=== PATIENT | female | born 1945 | race Caucasian/White ===

== ENCOUNTER 2017-04-26 10:04 | Observation (INO) ==
--- NOTE | 2017-04-26 10:44 | Emergency Department Note ---
Disposition Clinical Impression: Diverticulitis, Rectal bleeding Disposition: Admitted As Inpatient Condition: Fair Referrals: Brian Dhillon DO [Primary Care Provider] - Forms: ED Satisfaction Letter, Work/School Release Time of Disposition: 13:04 Abdominal Pain HPI - General Chief Complaint: ED Abdominal Pain Stated Complaint: ABD Pain/GI bleed Time Seen by Provider: 04/26/17 10:06 Source: patient, family Mode of arrival: ambulatory Limitations: no limitations Nursing Notes Reviewed: Yes Vital Signs Reviewed: Yes - History of Present Illness HPI Narrative: 72-year-old female who comes in with a history of recurrent diarrhea with blood in it for the last month whose had increasing pain and now has not had a bowel movement for 4 days. Patient states that she has had a colonoscopy in the past about 3 years ago and had 3 polyps removed and she stated that there was cancer and one of them. The patient states she is about due for colonoscopy. Pt Subjective Complaint: abdominal pain Onset (ago): week(s) Consistency: intermittent, Worsening Location: diffuse Pain Scale: 6 Quality: cramping Radiation: none Migration to: no migration Improves with: nothing Associated symptoms: Reports: diarrhea, constipation Treatments prior to arrival: none - Related Data Home Medications Medication Instructions Recorded Confirmed Aspirin Enteric Coated [Aspirin EC] 81 mg PO DAILY 06/25/15 04/26/17 Levothyroxine [Synthroid] 88 mcg PO DAILY 06/25/15 04/26/17 Lisinopril [Zestril] 40 mg PO DAILY 06/25/15 04/26/17 Lovastatin 40 mg PO DAILY 06/25/15 04/26/17 Famotidine [Pepcid] 40 mg PO DAILY 04/26/17 04/26/17 Ondansetron ODT [Zofran ODT] 4 mg PO Q8H PRN 04/26/17 04/26/17 Sertraline [Zoloft] 50 mg PO DAILY 04/26/17 04/26/17 Allergies Allergy/AdvReac Type Severity Reaction Status Date / Time isosorbide [From Imdur] AdvReac Dizziness Verified 04/26/17 10:11 All systems ED: reviewed and negative except as stated. Constitutional: Denies: fever, chills, weakness, weight change Eyes: Denies: eye pain, eye discharge, vision change ENT ED: Denies: ear pain, throat pain, dental pain, hearing loss, epistaxis, congestion, dysphagia Cardiovascular: Denies: chest pain, palpitations, dyspnea on exertion, edema, syncope Respiratory: Denies: cough, dyspnea, wheezes, hemoptysis, stridor Gastrointestinal: Reports: abdominal pain, nausea, diarrhea, constipation. Denies: vomiting, hematemesis, melena, hematochezia Genitourinary: Denies: dysuria, frequency, hematuria, discharge Musculoskeletal: Denies: back pain, neck pain, arthralgia, myalgia Integumentary: Denies: rash, abrasion, lesions Neurological: Denies: headache, weakness, numbness, paresthesias, confusion, abnormal gait, vertigo Psychiatric: Denies: anxiety, depression, suicidal thoughts, homicidal thoughts , auditory hallucinations, visual hallucinations Endocrine: Denies: fatigue Hematological/Lymphatic: Denies: easy bleeding, easy bruising Allergic/Immunologic: Denies: facial swelling, urticaria Abdominal Pain PMH - Past Medical History Medical history: Reports: hyperlipidemia, hypertension, thyroid disease, other Female Surgical History: Reports: other Psychiatric history: Reports: depression - Social History Smoking status: Never smoker Alcohol use: Reports: none Drug use: Reports: none Physical Exam - General Limitations: no limitations General appearance: alert, in no apparent distress Course - Reevaluation(s) Reevaluation #1: 72-year-old comes in with abdominal pain and rectal bleeding CT shows diverticular disease, patient will be admitted for further evaluation and treatment. Time: 13:04 - Consultations Consultation #1: Discussed with Dr. Okeefe, admit Time: 13:04 Vital Signs Temperature 97.5 F L 04/26/17 10:06 Pulse Rate 72 04/26/17 10:06 Respiratory Rate 18 04/26/17 10:06 Blood Pressure 155/85 04/26/17 10:06 O2 Sat by Pulse Oximetry 94 04/26/17 10:06 Temperature 97.5 F L 04/26/17 10:06 Pulse Rate 74 04/26/17 10:26 Respiratory Rate 04/26/17 10:26 Blood Pressure 148/84 04/26/17 10:26 O2 Sat by Pulse Oximetry 96 04/26/17 10:26 Oxygen Delivery Oxygen Delivery Room Air Abdominal Pain - Lab Data Lab results reviewed: Yes I reviewed the patient's lab results. Result diagrams: 04/26/17 10:40 04/26/17 10:40 Lab Results 04/26/17 04/26/17 04/26/17 Range/Units 10:40 10:40 10:40 WBC 8.2 (4.3-11.1) K/mcL RBC 5.27 H (3.82-4.97) M/mcL Hgb 15.1 (11.5-15.4) g/dL Hct 44.9 (35.3-44.9) % MCV 85.2 (83.0-100.0) fL MCH 28.7 (28.0-33.3) pg MCHC 33.6 (31.6-35.5) g/dL RDW 12.3 (11.5-14.5) % Plt Count 257 (140-400) K/mcL MPV 8.5 L (9.4-12.4) fL Immature Gran % 0.5 (0-4) % Seg Neutrophils % 64.8 % Lymphocytes % 23.8 % Monocytes % 9.9 % Eosinophils % 0.6 % Basophils % 0.4 % Neutrophils # 5.3 (1.6-8.9) K/mcL Lymphocytes # 2.0 (0.6-4.6) K/mcL Monocytes # 0.8 (0.0-1.3) K/mcL Eosinophils # 0.1 (0.0-0.6) K/mcL Basophils # 0.0 (0.0-0.2) K/mcL PT 11.3 (9.4-12.1) Seconds INR 1.1 APTT 27.9 (26.0-36.0) Seconds Sodium 134 L (136-145) mEq/L Potassium 4.3 (3.5-5.1) mEq/L Chloride 100 (98-107) mEq/L Carbon Dioxide 24 (23-29) mEq/L BUN 20 (8-23) mg/dL Creatinine 1.01 (0.60-1.20) mg/dL Est GFR ( Amer) > 60 (> 60) Est GFR (Non-Af Amer) 54 L (> 60) BUN/Creatinine Ratio 20 (6-26) Glucose 99 (70-105) mg/dL Calculated Osmolality 281 (280-300) Lactic Acid (0.5-2.2) mmol/L Calcium 10.0 (8.6-10.3) mg/dL Total Bilirubin 0.8 (0.3-1.0) mg/dL Direct Bilirubin 0.1 (0.0-0.2) mg/dL Indirect Bilirubin 0.7 (0.0-1.2) mg/dL AST 15 (13-39) Units/L ALT 18 (7-52) Units/L Alkaline Phosphatase 75 (34-104) Units/L Troponin I < 0.03 (< 0.04) ng/mL Serum Total Protein 7.4 (6.4-8.9) g/dL Albumin 4.7 (3.5-5.7) g/dL Globulin 2.7 (2.4-3.5) g/dL Albumin/Globulin Ratio 1.7 (1.1-2.2) Amylase 36 (29-103) Units/L Lipase 15 (11-82) Units/L Urine Color (Yellow) Urine Clarity (Clear) Urine pH (5.0-8.0) pH Units Ur Specific [place] (1.010-1.025) Urine Protein (Neg-Trace) mg/dL Urine Glucose (UA) (Normal) mg/dL Urine Ketones (Negative) mg/dL Urine Blood (Negative) Urine Nitrite (Negative) Urine Bilirubin (Negative) Urine Urobilinogen (Normal) mg/dL Ur Leukocyte Esterase (Negative) Urine Microscopic RBC (0-3) per hpf Urine Microscopic WBC (0-3) per hpf Ur Squamous Epith Cells (None-Few) per lpf Urine Bacteria (None-Few) per hpf Hyaline Casts (None-Few) per lpf Ur Culture Indicated? (NO) Blood Type Antibody Screen 04/26/17 04/26/17 04/26/17 Range/Units 10:40 10:40 11:21 WBC (4.3-11.1) K/mcL RBC (3.82-4.97) M/mcL Hgb (11.5-15.4) g/dL Hct (35.3-44.9) % MCV (83.0-100.0) fL MCH (28.0-33.3) pg MCHC (31.6-35.5) g/dL RDW (11.5-14.5) % Plt Count (140-400) K/mcL MPV (9.4-12.4) fL Immature Gran % (0-4) % Seg Neutrophils % % Lymphocytes % % Monocytes % % Eosinophils % % Basophils % % Neutrophils # (1.6-8.9) K/mcL Lymphocytes # (0.6-4.6) K/mcL Monocytes # (0.0-1.3) K/mcL Eosinophils # (0.0-0.6) K/mcL Basophils # (0.0-0.2) K/mcL PT (9.4-12.1) Seconds INR APTT (26.0-36.0) Seconds Sodium (136-145) mEq/L Potassium (3.5-5.1) mEq/L Chloride (98-107) mEq/L Carbon Dioxide (23-29) mEq/L BUN (8-23) mg/dL Creatinine (0.60-1.20) mg/dL Est GFR ( Amer) (> 60) Est GFR (Non-Af Amer) (> 60) BUN/Creatinine Ratio (6-26) Glucose (70-105) mg/dL Calculated Osmolality (280-300) Lactic Acid 1.2 (0.5-2.2) mmol/L Calcium (8.6-10.3) mg/dL Total Bilirubin (0.3-1.0) mg/dL Direct Bilirubin (0.0-0.2) mg/dL Indirect Bilirubin (0.0-1.2) mg/dL AST (13-39) Units/L ALT (7-52) Units/L Alkaline Phosphatase (34-104) Units/L Troponin I (< 0.04) ng/mL Serum Total Protein (6.4-8.9) g/dL Albumin (3.5-5.7) g/dL Globulin (2.4-3.5) g/dL Albumin/Globulin Ratio (1.1-2.2) Amylase (29-103) Units/L Lipase (11-82) Units/L Urine Color Yellow (Yellow) Urine Clarity Clear (Clear) Urine pH 7.0 (5.0-8.0) pH Units Ur Specific [place] 1.022 (1.010-1.025) Urine Protein Negative (Neg-Trace) mg/dL Urine Glucose (UA) Normal (Normal) mg/dL Urine Ketones Negative (Negative) mg/dL Urine Blood Negative (Negative) Urine Nitrite Negative (Negative) Urine Bilirubin Negative (Negative) Urine Urobilinogen Normal (Normal) mg/dL Ur Leukocyte Esterase Small H (Negative) Urine Microscopic RBC 5-15 H (0-3) per hpf Urine Microscopic WBC 0-3 (0-3) per hpf Ur Squamous Epith Cells Many H (None-Few) per lpf Urine Bacteria None Seen (None-Few) per hpf Hyaline Casts None Seen (None-Few) per lpf Ur Culture Indicated? NO. (NO) Blood Type O POSITIVE Antibody Screen NEGATIVE - Radiology Data Radiology results reviewed: Yes I reviewed the patient's radiology results. Abdomen/Pelvis CT 04/26/17 10:20 IMPRESSION: Early changes of diverticulitis involving the sigmoid colon with no evidence for bowel rupture or abscess. D/ / 04/26/2017 11:07:36 Frankie Hernandez MD / rashid Interpreting Provider: Frankie Hernandez MD
[2017-04-26 11:03] LABS: Basophils % 0.4 %; Eosinophils # 0.1 K/mcL (0.0-0.6); Eosinophils % 0.6 %; Hematocrit 44.9 % (35.3-44.9); Hemoglobin 15.1 g/dL (11.5-15.4); Immature Granulocytes % 0.5 % (0-4); Lymphocytes % 23.8 %; Mean Corpuscular HGB Conc 33.6 g/dL (31.6-35.5); Mean Corpuscular Hemoglobin 28.7 pg (28.0-33.3); Mean Corpuscular Volume 85.2 fL (83.0-100.0); Mean Platelet Volume 8.5 fL (9.4-12.4); Monocytes # 0.8 K/mcL (0.0-1.3); Monocytes % 9.9 %; Neutrophils # 5.3 K/mcL (1.6-8.9); Platelet Count 257 K/mcL (140-400); Red Blood Count 5.27 M/mcL (3.82-4.97); Red Cell Distribution Width 12.3 % (11.5-14.5); Segmented Neutrophils % 64.8 %
[2017-04-26 11:12] LABS: INR 1.1; Prothrombin Time 11.3 Seconds (9.4-12.1)
[2017-04-26 11:14] LABS: Activated Partial Thrombo Time 27.9 Seconds (26.0-36.0)
[2017-04-26 11:25] LABS: Alanine Aminotransferase 18 Units/L (7-52); Albumin 4.7 g/dL (3.5-5.7); Albumin/Globulin Ratio 1.7 (1.1-2.2); Alkaline Phosphatase 75 Units/L (34-104); Amylase 36 Units/L (29-103); Aspartate Amino Transferase 15 Units/L (13-39); BUN/Creatinine Ratio 20 (6-26); Bilirubin,Direct 0.1 mg/dL (0.0-0.2); Bilirubin,Indirect 0.7 mg/dL (0.0-1.2); Bilirubin,Total 0.8 mg/dL (0.3-1.0); Blood Urea Nitrogen 20 mg/dL (8-23); Carbon Dioxide 24 mEq/L (23-29); Chloride 100 mEq/L (98-107); Globulin 2.7 g/dL (2.4-3.5); Glucose 99 mg/dL (70-105); Lipase 15 Units/L (11-82); Osmolality,Calculated 281 (280-300); Potassium 4.3 mEq/L (3.5-5.1); Sodium 134 mEq/L (136-145); Total Protein 7.4 g/dL (6.4-8.9); eGFR For African Americans > 60 (> 60); eGFR For Non-African Americans 54 (> 60)
[2017-04-26 11:29] LABS: Bilirubin,Urine Negative (Negative); Blood,Urine Negative (Negative); Clarity,Urine Clear (Clear); Color,Urine Yellow (Yellow); Glucose,Urine (UA) Normal (Normal); Ketones,Urine Negative (Negative); Leukocyte Esterase,Urine Small (Negative); Nitrite,Urine Negative (Negative); Protein,Urine Negative (Neg-Trace); Specific Gravity,Urine 1.022 (1.010-1.025); Urobilinogen,Urine Normal (Normal)
[2017-04-26 11:34] LABS: Bacteria,Urine None Seen per hpf (None-Few); Hyaline Casts,Urine None Seen per lpf (None-Few); Squamous Epithelial Cell,Urine Many per lpf (None-Few); WBC,Urine 0-3 per hpf (0-3)
[2017-04-26] MEDS ORDERED: Levofloxacin 500 MG/100 ML 500 MG/100 ML BAG IVPB ONE (12:16)
[2017-04-26 12:24] LABS: Troponin I < 0.03 ng/mL (< 0.04)
[2017-04-26] MEDS: MetroNIDAZOLE 500 MG/100 ML 500 MG/100 ML BAG IVPB ONE ×2 (12:29→13:48)
--- NOTE | 2017-04-26 13:18 | Internal Med History&Physical ---
Date of Encounter: 04/26/17 Time of Encounter: 13:15 Assessment and Plan (1) HTN (hypertension) Current visit: Yes Status: Chronic Chronic now well controlled we will adjust home medication Qualifiers: Hypertension type: essential hypertension Qualified Code(s): I10 - Essential (primary) hypertension (2) Hyperlipidemia Current visit: Yes Status: Chronic Recheck lipid profile in a.m. Qualifiers: Hyperlipidemia type: pure hypercholesterolemia Qualified Code(s): E78.00 - Pure hypercholesterolemia, unspecified; E78.0 - Pure hypercholesterolemia (3) Hypothyroid Current visit: Yes Status: Chronic Chronic resume home medication Qualifiers: Hypothyroidism type: unspecified Qualified Code(s): E03.9 - Hypothyroidism , unspecified (4) Depression Current visit: Yes Status: Chronic Chronic resume home medication Qualifiers: Depression Type: unspecified Qualified Code(s): F32.9 - Major depressive disorder, single episode, unspecified (5) Diverticulitis Current visit: Yes Status: Acute Acute diverticulitis involving the sigmoid colon was started on Flagyl and Cipro (6) Rectal bleeding Current visit: Yes Status: Acute Blood in the stool no black stool appeared to be lower GI bleeding patient states she had polyps in the past and was told it was precancerous we will consult GI for further evaluation probably colonoscopy and EGD after diverticulitis is resolved Internal Medicine - H&P: HPI Chief complaint: abd pain Admitted From: Emergency Dept Plans for Post Hospital Care: Home History of present illness: Ms. Fermin is a 72 year old female Patient with history of ovarian cancer, hypertension, high cholesterol, hypothyroidism and depression. Patient has had diarrhea for about a month followed by PCP given omeprazole some antinausea medication she also been seeing some blood in her stool . Has increased abdominal pain the last 4 days with apparently change from from diarrhea to constipation and has not a bowel movement for about 4 days . patient has had had a colonoscopy about 3 years ago show some polyps says b was told one was precancerous. Patient denies any fever or chills CT of the abdomen shows diverticulitis involving the sigmoid colon. Patient will be admitted for treatment of diverticulitis and will consult GI for further evaluation given blood in the stool and history of polyps. Past Med Surg Social Fam HX - Past Medical History Medical history: hyperlipidemia, hypertension, thyroid disease, other Psychiatric history: depression - Past Surgical History Surgical History: appendectomy, cholecystectomy, MART/BSO - Social History Smoking Status: Never smoker Smokeless Tobacco Status: No Alcohol use: none Drug use: none Internal Medicine - H&P: Meds Aspirin Enteric Coated [Aspirin EC] 81 mg PO DAILY 06/25/15 [History] Levothyroxine [Synthroid] 88 mcg PO DAILY 06/25/15 [History] Lisinopril [Zestril] 40 mg PO DAILY 06/25/15 [History] Lovastatin 40 mg PO DAILY 06/25/15 [History] Famotidine [Pepcid] 40 mg PO DAILY 04/26/17 [History] Ondansetron ODT [Zofran ODT] 4 mg PO Q8H PRN 04/26/17 [History] Sertraline [Zoloft] 50 mg PO DAILY 04/26/17 [History] 3 Allergy/AdvReac Type Severity Reaction Status Date / Time isosorbide [From Imdur] AdvReac Dizziness Verified 04/26/17 10:11 All Systems PM: A 10-system review of systems was performed and is negative for pertinent findings except as documented above in the HPI. - Constitutional Constitutional: no chills, no fever(s), no night sweats - EENT Eyes: no change in vision, no discharge, no pain, no photophobia Ears: no ear discharge, no ear pain, no tinnitus Nose, mouth and throat: no dysphagia, no nasal discharge, no neck pain, no sore throat - Cardiovascular Cardiovascular ROS IM: no chest pain, no diaphoresis, no dyspnea, no lightheadedness, no palpitations, no syncope - Respiratory Respiratory: no cough, no dyspnea, no wheezing, no excessive phlegm production - Gastrointestinal Gastrointestinal: abdominal pain, nausea, vomiting - Genitourinary Genitourinary: no change in urinary stream, no dysuria, no flank pain, no hematuria - Musculoskeletal Musculoskeletal ROS IM: no numbness, no tingling - Constitutional Vitals: Temp Pulse Resp BP Pulse Ox 97.5 F L 74 18 148/84 96 04/26/17 10:06 04/26/17 10:26 04/26/17 10:26 04/26/17 10:26 04/26/17 10:26 - Head Head exam: Present: atraumatic, normocephalic - Eye Eye exam: Present: PERRL, conjuntiva pink, sclera anicteric Pupils: Present: PERRL - Respiratory Respiratory exam: Present: CTAB. Absent: accessory muscle use, rales, rhonchi, wheezes - Cardiovascular Cardiovascular exam: Present: RRR, +S1, +S2. Absent: diastolic murmur, gallop, rubs, systolic murmur - GI/Abdominal GI/Abdominal exam: Present: soft, tenderness - Extremities Exam Extremities exam: Present: warm, radial pulses palpable and symmetrical. Absent : calf tenderness, cyanotic, pedal edema Internal Med - H&P Results - Labs CBC & Chem 7: 04/26/17 10:40 04/26/17 10:40 Labs: Short CBC 04/26/17 Range/Units 10:40 WBC 8.2 (4.3-11.1) K/mcL Hgb 15.1 (11.5-15.4) g/dL Hct 44.9 (35.3-44.9) % Plt Count 257 (140-400) K/mcL Neutrophils # 5.3 (1.6-8.9) K/mcL BMP 04/26/17 10:40 Sodium 134 L Potassium 4.3 Chloride 100 Carbon Dioxide 24 BUN 20 Creatinine 1.01 Glucose 99 Calcium 10.0 Cardiac Enzymes 04/26/17 Range/Units 10:40 Troponin I < 0.03 (< 0.04) ng/mL Liver Function 04/26/17 Range/Units 10:40 Total Bilirubin 0.8 (0.3-1.0) mg/dL Direct Bilirubin 0.1 (0.0-0.2) mg/dL AST 15 (13-39) Units/L ALT 18 (7-52) Units/L Alkaline Phosphatase 75 (34-104) Units/L Albumin 4.7 (3.5-5.7) g/dL Urine 04/26/17 Range/Units 11:21 Urine Color Yellow (Yellow) Urine Clarity Clear (Clear) Urine pH 7.0 (5.0-8.0) pH Units Ur Specific [place] 1.022 (1.010-1.025) Urine Protein Negative (Neg-Trace) mg/dL Urine Glucose (UA) Normal (Normal) mg/dL - Impressions ITS Impressions Abdomen/Pelvis CT 03/12/18 10:20 IMPRESSION: Early changes of diverticulitis involving the sigmoid colon with no evidence for bowel rupture or abscess. D/ / 04/26/2017 11:07:36 Frankie Hernandez MD / rashid Interpreting Provider: Frankie Hernandez MD
[2017-04-26] MEDS ORDERED: Mag Hydrox/Al Hydrox/Simeth 30 ML UDC PO PRN (13:23)
[2017-04-26] MEDS ORDERED: Naloxone 0.4 MG/ML INJ IVP PRN (13:23)
[2017-04-26] MEDS: 0.9 % Sodium Chloride 1,000 ML IVC SCH (16:36)
[2017-04-26] MEDS: MetroNIDAZOLE 500 MG/100 ML 500 MG/100 ML BAG IVPB SCH (16:36)
[2017-04-26] MEDS: Acetaminophen 325 MG TABLET PO PRN (19:39)
[2017-04-27] MEDS: MetroNIDAZOLE 500 MG/100 ML 500 MG/100 ML BAG IVPB SCH ×4 (00:07→23:16)
[2017-04-27] MEDS: Ondansetron 4 MG/2 ML VIAL IVP PRN ×2 (01:57→09:37)
[2017-04-27 04:56] LABS: Hematocrit 41.6 % (35.3-44.9); Hemoglobin 13.6 g/dL (11.5-15.4); Mean Corpuscular HGB Conc 32.7 g/dL (31.6-35.5); Mean Corpuscular Hemoglobin 28.2 pg (28.0-33.3); Mean Corpuscular Volume 86.1 fL (83.0-100.0); Mean Platelet Volume 8.5 fL (9.4-12.4); Platelet Count 224 K/mcL (140-400); Red Blood Count 4.83 M/mcL (3.82-4.97); Red Cell Distribution Width 12.4 % (11.5-14.5)
[2017-04-27 05:13] LABS: Alanine Aminotransferase 15 Units/L (7-52); Albumin 3.9 g/dL (3.5-5.7); Albumin/Globulin Ratio 1.8 (1.1-2.2); Alkaline Phosphatase 59 Units/L (34-104); Aspartate Amino Transferase 13 Units/L (13-39); BUN/Creatinine Ratio 20 (6-26); Bilirubin,Total 0.7 mg/dL (0.3-1.0); Blood Urea Nitrogen 19 mg/dL (8-23); Calcium 8.8 mg/dL (8.6-10.3); Carbon Dioxide 24 mEq/L (23-29); Chloride 105 mEq/L (98-107); Chol/HDL Ratio 5.2 (0-4.9); Cholesterol 182 mg/dL (< 200); Globulin 2.2 g/dL (2.4-3.5); Glucose 103 mg/dL (70-105); HDL Cholesterol 35 mg/dL (40-59); LDL Cholesterol,Calculated 121 mg/dL (0-99); Magnesium 2.4 mg/dL (1.6-2.6); Osmolality,Calculated 283 (280-300); Sodium 135 mEq/L (136-145); Total Protein 6.1 g/dL (6.4-8.9); Triglycerides 131 mg/dL (< 150); eGFR For African Americans > 60 (> 60); eGFR For Non-African Americans 58 (> 60)
[2017-04-27] MEDS: Famotidine 20 MG TABLET PO SCH (09:38)
[2017-04-27] MEDS: Lisinopril 20 MG TABLET PO SCH (09:38)
[2017-04-27] MEDS: Aspirin Enteric Coated 81 MG Tablet PO SCH (09:39)
--- NOTE | 2017-04-27 10:38 | Internal Med Progress Note ---
Date of Encounter: 04/27/17 Time of Encounter: 10:38 - Assessment and plan (1) Diverticulitis Current Visit: Yes Status: Acute Assessment and plan: 1 acute diverticulitis involving sigmoid colon continue with Flagyl and Cipro Abdominal pain improved will initiate on clear liquids today (2) Rectal bleeding Current Visit: Yes Status: Acute Assessment and plan: Patient has been experiencing bright red blood after bowel movement. She has had some constipation. She had colonoscopy in the past had some polyps which she was told precancerous GI consulted-recommends colonoscopy as outpatient okay to eat (3) HTN (hypertension) Current Visit: Yes Status: Chronic Assessment and plan: Controlled continue with home medications Qualifiers: Hypertension type: essential hypertension Qualified Code(s): I10 - Essential (primary) hypertension (4) Hyperlipidemia Current Visit: Yes Status: Chronic Assessment and plan: Continue with statin- atorvastatin Qualifiers: Hyperlipidemia type: pure hypercholesterolemia Qualified Code(s): E78.00 - Pure hypercholesterolemia, unspecified; E78.0 - Pure hypercholesterolemia (5) Hypothyroid Current Visit: Yes Status: Chronic Assessment and plan: Continue with home medications Qualifiers: Hypothyroidism type: unspecified Qualified Code(s): E03.9 - Hypothyroidism , unspecified - Time Spent With Patient less than 15 minutes - Subjective Interval history: Patient complains of some lower abdominal discomfort denies any nausea or vomiting at this time. She does have some constipation had a very hard stool this morning with bright red blood on her tissue paper. States that she does feel much better today then she did yesterday. Awaiting GIs recommendations - Constitutional Vitals: Temp Pulse Resp BP Pulse Ox 97.8 F 73 15 145/86 94 04/27/17 06:52 04/27/17 06:52 04/27/17 06:52 04/27/17 06:52 04/27/17 06:52 General appearance: Present: A&O X 3 - Head Head exam: Present: atraumatic, normocephalic - Eye Eye exam: Present: PERRL, conjuntiva pink, sclera anicteric Pupils: Present: PERRL - Neck Neck exam general surgery: Present: supple, trachea midline. Absent: lymphadenopathy - Respiratory Respiratory exam: Present: CTAB. Absent: accessory muscle use, rales, rhonchi, wheezes - Cardiovascular Cardiovascular exam: Present: RRR, +S1, +S2. Absent: diastolic murmur, gallop, rubs, systolic murmur - GI/Abdominal GI/Abdominal exam: Present: normal bowel sounds, soft, no peritoneal signs. Absent: distended, tenderness - Extremities Exam Extremities exam: Present: warm, radial pulses palpable and symmetrical. Absent : calf tenderness, cyanotic, pedal edema - Neurological Exam Neurological exam: Present: CN II-XII intact, oriented X3, no focal deficits. Absent: pronater drift, facial droop, speech deficit - Skin Skin exam: Present: dry, intact Internal Medicine: Result - Labs CBC & Chem 7: 04/27/17 04:06 04/27/17 04:06 Labs: Short CBC 04/27/17 Range/Units 04:06 WBC 6.3 (4.3-11.1) K/mcL Hgb 13.6 D (11.5-15.4) g/dL Hct 41.6 (35.3-44.9) % Plt Count 224 (140-400) K/mcL BMP 04/27/17 04:06 Sodium 135 L Potassium 4.0 Chloride 105 Carbon Dioxide 24 BUN 19 Creatinine 0.95 Glucose 103 Calcium 8.8 Liver Function 04/27/17 Range/Units 04:06 Total Bilirubin 0.7 (0.3-1.0) mg/dL AST 13 (13-39) Units/L ALT 15 (7-52) Units/L Alkaline Phosphatase 59 (34-104) Units/L Albumin 3.9 (3.5-5.7) g/dL - ABG Interpretation ABG results: PT/INR, D-dimer PT 11.3 Seconds (9.4-12.1) 04/26/17 10:40 Consult Discharge Plan - Plan Referrals: Brian Dhillon DO [Primary Care Provider] -
[2017-04-27] MEDS: 0.9 % Sodium Chloride 1,000 ML IVC SCH (11:00)
--- NOTE | 2017-04-27 12:34 | Gastroenterology Consult Note ---
<Sara Cazares - Last Filed: 04/27/17 12:31> Date of Encounter: 04/27/17 Time of Encounter: 10:15 - Assessment and plan (1) Diverticulitis Current Visit: Yes Status: Acute Assessment and plan: Pt states diarrhea has resolved and is now having constipation. CT showed diverticulitis and is appropriately on Cipro and Flagyl. She denies rectal bleeding. Will follow up for outpatient colonoscopy after diverticulitis has resolved. - Time Spent With Patient Total time spent is greater than 50% in coordination of care (as documented) at patient's floor/unit and/or counseling patient: GI History of Present Illness - Data of Consult Patient: new to practice Consult date: 04/27/17 Requesting Physician: Génesis Mistry - Consult Narrative Reason for consult: diarrhea, diverticulitis History of present illness: Ms. Fermin is a 72 year old female with a pmhx of ovarian cancer, hypertension , high cholesterol, hypothyroidism and depression. She presents with diarrhea for about a month followed by PCP given omeprazole some antinausea medication. She also reports abdominal pain. She denies blood in her stool. She now reports no BM x 4 days, then had small hard BM this am. Patient denies any fever but has had chills . She also complains of nausea and vomiting, not related to any specific foods. CT of the abdomen shows diverticulitis involving the sigmoid colon. She was admitted and started on cipro and flagyl. Hgb was 15.1 on admission and is now 13.6. Colonoscopy: 12/24 tubular adenoma EGD: 05/25 gastritis and hyperplastic gastric polyps NSAIDS/ASA: asa 81 mg Anticoagulants: none Past Med Surg Social Fam HX - Past Medical History Medical history: hyperlipidemia, hypertension, thyroid disease, other Psychiatric history: depression - Past Surgical History Surgical History: appendectomy, cholecystectomy, hysterectomy - Social History Smoking Status: Never smoker Smokeless Tobacco Status: No Alcohol use: none Drug use: none - Family History Father Living Status: Hx Family Cancer: Yes (lung) Review of Systems: GI: as per [place] GENERAL: denies fever, has some chills EYES: denies yellow discoloration ENT: denies pain with swallowing or difficulty swallowing CARDIO: denies chest pain, palpitations RESP: No Shortness of breath with exertion : denies change in color of urine NEURO: weakness HEME: Denies any bruising MS: chronic joint and back pain. DERM: denies rash or itching PSYCH: Denies history of anxiety or depression - Constitutional Vitals: Temp Pulse Resp BP Pulse Ox 98.5 F 70 15 144/70 96 04/27/17 10:35 04/27/17 10:35 04/27/17 10:35 04/27/17 10:35 04/27/17 10:35 Exam: CONSTITUTIONAL:~alert, no acute distress.~HEAD:~normocephalic.~EYES:~no jaundice.~NECK:~no obvious swelling.~HEART:~regular rate and rhythm, no murmurs. ~LUNGS:~bilateral good air entry.~ABDOMEN:~distended, soft, very tender, no masses pulpable, no organomegaly.~RECTAL EXAM:~Deferred.~EXTREMITIES:~no clubbing, cyanosis or edema.~SKIN:~no stigmata of chronic liver disease.~ NEUROLOGIC:~no obvious focal defect.~~~~ Results - Labs CBC & Chem 7: 04/27/17 04:06 04/27/17 04:06 Labs: Last Result Calcium 8.8 mg/dL (8.6-10.3) 04/27/17 04:06 Troponin I < 0.03 ng/mL (< 0.04) 04/26/17 10:40 Triglycerides 131 mg/dL (< 150) 04/27/17 04:06 Entire Visit Hgb 13.6 g/dL (11.5-15.4) D 04/27/17 04:06 Hct 41.6 % (35.3-44.9) 04/27/17 04:06 PT 11.3 Seconds (9.4-12.1) 04/26/17 10:40 Total Bilirubin 0.7 mg/dL (0.3-1.0) 04/27/17 04:06 AST 13 Units/L (13-39) 04/27/17 04:06 ALT 15 Units/L (7-52) 04/27/17 04:06 Amylase 36 Units/L (29-103) 04/26/17 10:40 Lipase 15 Units/L (11-82) 04/26/17 10:40 - ABG ABG results: PT/INR, D-dimer PT 11.3 Seconds (9.4-12.1) 04/26/17 10:40 Consult Discharge Plan - Plan Referrals: Brian Dhillon, [Primary Care Provider] - <Samantha Wilson - Last Filed: 04/27/17 17:07> Date of Encounter: 04/27/17 Time of Encounter: 14:30 - Time Spent With Patient Total time spent is greater than 50% in coordination of care (as documented) at patient's floor/unit and/or counseling patient: GI History of Present Illness - Data of Consult Requesting Physician: Génesis Mistry - Consult Narrative History of present illness: Ms. Fermin is a 72 year old female - Constitutional Vitals: Temp Pulse Resp BP Pulse Ox 97.4 F L 68 16 112/63 94 04/27/17 14:55 04/27/17 14:55 04/27/17 14:55 04/27/17 14:55 04/27/17 14:55 Results - Labs CBC & Chem 7: 04/27/17 04:06 04/27/17 04:06 Labs: Last Result Calcium 8.8 mg/dL (8.6-10.3) 04/27/17 04:06 Troponin I < 0.03 ng/mL (< 0.04) 04/26/17 10:40 Triglycerides 131 mg/dL (< 150) 04/27/17 04:06 Stool Occult Blood Positive (Negative) A 04/27/17 12:20 Entire Visit Hgb 13.6 g/dL (11.5-15.4) D 04/27/17 04:06 Hct 41.6 % (35.3-44.9) 04/27/17 04:06 PT 11.3 Seconds (9.4-12.1) 04/26/17 10:40 Total Bilirubin 0.7 mg/dL (0.3-1.0) 04/27/17 04:06 AST 13 Units/L (13-39) 04/27/17 04:06 ALT 15 Units/L (7-52) 04/27/17 04:06 Amylase 36 Units/L (29-103) 04/26/17 10:40 Lipase 15 Units/L (11-82) 04/26/17 10:40 - ABG ABG results: PT/INR, D-dimer PT 11.3 Seconds (9.4-12.1) 04/26/17 10:40 - Attending Attestation I have personally performed a face to face evaluation on this patient. I have reviewed and agree with the care plan. History and Exam by me shows:
[2017-04-27] MEDS: Acetaminophen 325 MG TABLET PO PRN (18:26)
[2017-04-27] MEDS ORDERED: Melatonin 3 MG TABLET PO PRN (23:07)
[2017-04-28] MEDS: Acetaminophen 325 MG TABLET PO PRN (04:37)
[2017-04-28 05:23] LABS: Basophils % 0.5 %; Eosinophils # 0.1 K/mcL (0.0-0.6); Eosinophils % 1.7 %; Hematocrit 40.4 % (35.3-44.9); Hemoglobin 13.2 g/dL (11.5-15.4); Immature Granulocytes % 0.2 % (0-4); Lymphocytes % 23.3 %; Mean Corpuscular HGB Conc 32.7 g/dL (31.6-35.5); Mean Corpuscular Hemoglobin 28.1 pg (28.0-33.3); Mean Corpuscular Volume 86.1 fL (83.0-100.0); Mean Platelet Volume 8.5 fL (9.4-12.4); Monocytes # 0.5 K/mcL (0.0-1.3); Monocytes % 11.3 %; Neutrophils # 2.6 K/mcL (1.6-8.9); Platelet Count 214 K/mcL (140-400); Red Blood Count 4.69 M/mcL (3.82-4.97); Red Cell Distribution Width 12.5 % (11.5-14.5)
[2017-04-28 05:42] LABS: BUN/Creatinine Ratio 12 (6-26); Blood Urea Nitrogen 11 mg/dL (8-23); Calcium 8.8 mg/dL (8.6-10.3); Carbon Dioxide 25 mEq/L (23-29); Chloride 106 mEq/L (98-107); Glucose 98 mg/dL (70-105); Osmolality,Calculated 283 (280-300); Potassium 4.1 mEq/L (3.5-5.1); Sodium 137 mEq/L (136-145); eGFR For African Americans > 60 (> 60); eGFR For Non-African Americans 58 (> 60)
[2017-04-28] MEDS: Lisinopril 20 MG TABLET PO SCH (11:24)
[2017-04-28] MEDS: Famotidine 20 MG TABLET PO SCH (11:24)
[2017-04-28] MEDS: Aspirin Enteric Coated 81 MG Tablet PO SCH (11:25)
[2017-04-28] MEDS: MetroNIDAZOLE 500 MG/100 ML 500 MG/100 ML BAG IVPB SCH ×2 (11:25→15:38)
[2017-04-28 14:52] VITALS: BP 113/64
--- NOTE | 2017-04-28 17:43 | Discharge Summary ---
Date of Encounter: 04/28/17 Time of Encounter: 17:41 - Discharge Diagnosis (1) Diverticulitis Priority: Primary Status: Acute Comments: Patient is to continue with Cipro and Flagyl for the next 7 days for a total 9 days. She will follow-up with GI as outpatient for colonoscopy once diverticulitis has resolved She will follow up with PCP She has been experiencing both diarrhea and constipation. (2) Rectal bleeding Priority: Primary Status: Acute Comments: HGB is stable GI consulted advised follow-up as outpatient for colonoscopy after diverticulitis has resolved. (3) HTN (hypertension) Priority: Secondary Status: Chronic Comments: Continue with home medications Qualifiers: Hypertension type: essential hypertension Qualified Code(s): I10 - Essential (primary) hypertension (4) Hyperlipidemia Priority: Secondary Status: Chronic Comments: Continue with home medications Qualifiers: Hyperlipidemia type: pure hypercholesterolemia Qualified Code(s): E78.00 - Pure hypercholesterolemia, unspecified; E78.0 - Pure hypercholesterolemia (5) Hypothyroid Priority: Secondary Status: Chronic Comments: Continue with Synthroid Qualifiers: Hypothyroidism type: unspecified Qualified Code(s): E03.9 - Hypothyroidism , unspecified Hospital course: Ms. Fermin is a 72 year old female past medical history of ovarian cancer hypertension high cholesterol hyperthyroidism depression. Patient had diarrhea for approximately a month she has been followed by her PCP was given omeprazole antiemetics she had also been seeing some blood in her stool. She had increased abdominal pain 4 days prior to presenting to the ER and her diarrhea changed to constipation. She had a colonoscopy approximately 3 years ago which did have some tubular adenoma EGD 05/25 with gastritis and hyperplastic gastric polyps. CT of abdomen was obtained which showed early changes of diverticulitis involving the sigmoid colon with no evidence of bowel rupture or abscess. She was initiated on Cipro and Flagyl was made nothing by mouth. GI was consulted, who advised that patient can be seen as outpatient once her diverticulitis has resolved. Hemoglobin was trended and she was stable during admission. Abdominal pain improved her diet was advanced from clears to regular which she tolerated. She is hemodynamically stable denies any pain or discomfort I did review medications and discharge instructions with the patient. Advised patient to follow-up with PCP as well as to make an appointment in approximately a month with GI to set up appointment for outpatient colonoscopy. Patient verbalized understanding she is ready for discharge - Time Spent with Patient Total time spent providing and/or coordinating discharge services: - Discharge Medications Prescriptions: Ciprofloxacin [Cipro] 750 mg PO BID 7 Days #14 tablet metroNIDAZOLE [Flagyl] 500 mg PO QID 7 Days #28 tablet Home Medications: Aspirin Enteric Coated [Aspirin EC] 81 mg PO DAILY 06/25/15 [History] Levothyroxine [Synthroid] 88 mcg PO DAILY 06/25/15 [History] Lisinopril [Zestril] 40 mg PO DAILY 06/25/15 [History] Lovastatin 40 mg PO DAILY 06/25/15 [History] Famotidine [Pepcid] 40 mg PO DAILY 04/26/17 [History] Ondansetron ODT [Zofran ODT] 4 mg PO Q8H PRN 04/26/17 [History] Sertraline [Zoloft] 50 mg PO DAILY 04/26/17 [History] Ciprofloxacin [Cipro] 750 mg PO BID 7 Days #14 tablet 04/28/17 [Rx] metroNIDAZOLE [Flagyl] 500 mg PO QID 7 Days #28 tablet 04/28/17 [Rx] Allergies/Adverse Reactions: 3 Allergy/AdvReac Type Severity Reaction Status Date / Time chocolate flavor AdvReac Headache Verified 04/27/17 14:51 isosorbide [From Imdur] AdvReac Dizziness Verified 04/26/17 10:11 Date of admission: 04/26/17 14:10 Primary care physician: Brian Dhillon DO Consults: GUL Discharging clinician: Debra Noyola Anticipated date of discharge: 04/28/17 - Constitutional Vitals: Temp Pulse Resp BP Pulse Ox 97.5 F L 78 15 113/64 94 04/28/17 14:51 04/28/17 14:51 04/28/17 14:51 04/28/17 14:51 04/28/17 14:51 General appearance: Present: A&O X 3 - Eye Eye exam: Present: PERRL, conjuntiva pink, sclera anicteric Pupils: Present: PERRL - Neck Neck exam general surgery: Present: supple, trachea midline. Absent: lymphadenopathy - Respiratory Respiratory exam: Present: CTAB. Absent: accessory muscle use, rales, rhonchi, wheezes - Cardiovascular Cardiovascular exam: Present: RRR, +S1, +S2. Absent: diastolic murmur, gallop, rubs, systolic murmur - GI/Abdominal GI/Abdominal exam: Present: normal bowel sounds, soft, no peritoneal signs. Absent: distended, tenderness - Extremities Exam Extremities exam: Present: warm, radial pulses palpable and symmetrical. Absent : calf tenderness, cyanotic, pedal edema - Neurological Exam Neurological exam: Present: CN II-XII intact, oriented X3, no focal deficits. Absent: pronater drift, facial droop, speech deficit - Skin Skin exam: Present: dry, intact - Patient Status Disposition: Home, Self-Care Condition: Fair Functional capacity at discharge: independent ambulation Overall status at discharge: patient is progressing back to baseline - Discharge Instructions Instructions: Diverticulitis (DC), Depression (DC), Hypothyroidism (DC), Diabetes Mellitus Type 2 in Adults (DC), Chronic Hypertension (DC) Follow Up With: Brian Dhillon DO [Primary Care Provider] -
== END 2017-04-28 18:41 | disposition home or self-care (01) ==
LOC: 3BNU 10:04 → EMEROO 10:04 → 3BNU 14:39
PROVIDERS: ADMIT Internal Medicine; ATTEND Internal Medicine